=== PATIENT | female | born 1965 | race African-American/Black ===

== ENCOUNTER 2019-03-21 16:30 | Emergency (ER) | payer SELFPAY ==
[~2019-03-21] VITALS: Ht 160 cm; Wt 95.1 kg
[2019-03-21] MEDS ORDERED: PREDNISONE 20MG TABLET PO ONE (17:00)
[2019-03-21] MEDS ORDERED: GABAPENTIN 100MG CAPSULE PO ONE (17:00)
[2019-03-21] MEDS ORDERED: ACYCLOVIR 400 MG TABLET PO ONE (17:00)
[2019-03-21] MEDS ORDERED: AMLODIPINE 2.5MG TABLET PO ONE (17:00)
[2019-03-21 17:31] VITALS: BP 133/81
== END 2019-03-21 18:00 | disposition home or self-care (01) ==
LOC: EDSEX 16:30 → ER 18:00
DX: G51.0 Bell's palsy (principal); I10 Essential (primary) hypertension; E11.9 Type 2 diabetes mellitus without complications; E78.00 Pure hypercholesterolemia, unspecified
CPT/HCPCS: 99283; J7512